=== PATIENT | female | born 1965 | race Caucasian/White ===

== ENCOUNTER → 2019-03-12 07:55 | Outpatient (BNVA) | payer BC, SELFPAY | PROVIDERS: Family Provider Family Medicine; PCP Family Medicine; Visit Provider Specialist | DX: G35 Multiple sclerosis (principal); M79.672 Pain in left foot; M79.671 Pain in right foot | CPT/HCPCS: 95909 ==

== ENCOUNTER → 2019-04-07 09:52 | Outpatient (BNVA) | payer BC, SELFPAY | PROVIDERS: Family Provider Family Medicine; PCP Family Medicine; Referring Provider Family Medicine; Visit Provider Internal Medicine Rheumatology | DX: M25.50 Pain in unspecified joint (principal); R53.83 Other fatigue; M72.2 Plantar fascial fibromatosis; Z79.899 Other long term (current) drug therapy; M19.041 Primary osteoarthritis, right hand; M19.042 Primary osteoarthritis, left hand | CPT/HCPCS: 99203 ==

== ENCOUNTER → 2022-08-02 10:32 | Outpatient (BNVA) | payer BC, SELFPAY | PROVIDERS: Family Provider Family Medicine; PCP Family Medicine; Visit Provider Internal Medicine Rheumatology | DX: Z79.899 Other long term (current) drug therapy (principal); Z15.89 Genetic susceptibility to other disease; R76.8 Other specified abnormal immunological findings in serum; Z11.59 Encounter for screening for other viral diseases; M46.1 Sacroiliitis, not elsewhere classified; M19.042 Primary osteoarthritis, left hand; M19.041 Primary osteoarthritis, right hand; Z11.1 Encounter for screening for respiratory tuberculosis | CPT/HCPCS: 36415; 72040; 72100; 72202; 73130; 73630; 82306; 86160; 86162; 86235; 86255; 86376; 86480; 86704; 86803; 87340 ==

== ENCOUNTER → 2024-03-26 13:50 | Outpatient (BNVA) | payer OTHER, SELFPAY | PROVIDERS: Family Provider Family Medicine; PCP Family Medicine; Visit Provider Internal Medicine Rheumatology | DX: Z79.899 Other long term (current) drug therapy (principal); M46.90 Unspecified inflammatory spondylopathy, site unspecified; M81.0 Age-related osteoporosis without current pathological fracture | CPT/HCPCS: 72202; 73130 ==

== ENCOUNTER → 2024-11-12 12:06 | Outpatient (BNVA) | payer BC, SELFPAY | PROVIDERS: Family Provider Family Medicine; PCP Family Medicine; Visit Provider Internal Medicine | DX: E05.90 Thyrotoxicosis, unspecified without thyrotoxic crisis or storm (principal); E06.3 Autoimmune thyroiditis | CPT/HCPCS: 36415; 83516; 84439; 84443; 86376; 86800 ==

== ENCOUNTER → 2024-11-17 12:48 | Outpatient (BNVA) | payer BC, SELFPAY | PROVIDERS: Family Provider Family Medicine; PCP Family Medicine; Visit Provider Internal Medicine Rheumatology | DX: Z79.899 Other long term (current) drug therapy (principal) | CPT/HCPCS: 36415; 80076; 82565; 85025; 85651; 86140; 86480; 86704; 86803; 87340 ==